=== PATIENT | female | born 1935 | race Hispanic/Latino ===

== ENCOUNTER 2016-12-20 10:56 | Outpatient (CLI) | payer MEDICARE ==
--- NOTE | 2016-12-20 14:59 | Mammography Report ---
LEFT DIGITAL SCREENING MAMMOGRAM : 12/20/16 10:56:00 CLINICAL: Routine screening. Breast cancer survivor status post right mastectomy. COMPARISON:10/04/12 FINDINGS: The breast is heterogeneously dense, which may obscure small masses. Upper-outer biopsy clip.No mass, architectural distortion or suspicious calcifications. IMPRESSION: No mammographic evidence of malignancy. BI-RADS CATEGORY: 2 -- Benign RECOMMENDATION: Routine screening in one year. ACR BI-RADS MAMMOGRAPHIC CODES: 0 = Needs additional imaging evaluation; 1 = Negative; 2 = Benign; 3 = Probably benign; 4 = Suspicious; 5 = Malignant; 6 = Known biopsy-proven malignancy COMMENT: 1. Dense breast tissue, i.e., adenosis, fibrocystic changes, etc., may obscure an underlying neoplasm. 2. Approximately 10% of cancers are not detected with mammography. 3. A negative mammography report should not delay biopsy if a clinically suspicious mass is present. COMMENT: Patient follow-up letters are generated via our [employer] application.
== END 2016-12-20 10:57 | disposition home or self-care (01) ==
LOC: SPVWC 10:56
PROVIDERS: ATTEND Internal Medicine
DX: Z12.31 Encounter for screening mammogram for malignant neoplasm of breast (principal); Z90.11 Acquired absence of right breast and nipple
CPT/HCPCS: G0202-52